=== PATIENT | male | born 1980 | race Caucasian/White ===

== ENCOUNTER 2016-10-26 22:57 | Emergency (ER) | payer OTHER ==
[~2016-10-26] VITALS: Ht 172.7 cm; Wt 108.9 kg
[2016-10-26] MEDS ORDERED: AMOXICILLIN500 M3 PO (23:12)
[2016-10-26] MEDS ORDERED: ALLEGRA-D 24 H1 EACH PO (23:12)
== END 2016-10-26 23:23 | disposition home or self-care (01) ==
LOC: ED 22:57
DX: H66.92 Otitis media, unspecified, left ear (principal); F17.200 Nicotine dependence, unspecified, uncomplicated

== ENCOUNTER 2016-12-15 23:40 | Emergency (ER) | payer OTHER ==
[~2016-12-15] VITALS: Ht 172.7 cm; Wt 113.4 kg
[~2016-12-15 23:40] MED LIST: ALLEGRA-D 24 H1 EACH PO; AMOXICILLIN500 M3 PO
[2016-12-16] MEDS ORDERED: Motrin,Rufen800 MG PO (00:57)
[2016-12-16] MEDS ORDERED: CYCLOBENZAPRINE5 M3 PO (00:57)
== END 2016-12-16 01:31 | disposition home or self-care (01) ==
LOC: ED 23:40
DX: S39.012A Strain of muscle, fascia and tendon of lower back, initial encounter (principal); F17.200 Nicotine dependence, unspecified, uncomplicated; W01.0XXA Fall on same level from slipping, tripping and stumbling without subsequent striking against object, initial encounter; Y93.89 Activity, other specified; Y99.8 Other external cause status; Y92.89 Other specified places as the place of occurrence of the external cause; Z88.8 Allergy status to other drugs, medicaments and biological substances